=== PATIENT | female | born 1985 | race Hispanic/Latino ===

== ENCOUNTER 2022-12-13 02:18 | Emergency (ER) | payer MEDICAID ==
[2022-12-13] MEDS ORDERED: Lidocaine 1% 10 ML MDV INJECT ONE (03:33)
== END 2022-12-13 04:32 | disposition home or self-care (01) ==
LOC: JD.ED 02:18
DX: S61.412A Laceration without foreign body of left hand, initial encounter (principal); W18.30XA Fall on same level, unspecified, initial encounter
CPT/HCPCS: 12001; 99282; 99283; J3490